=== PATIENT | female | born 1970 | race Caucasian/White ===

== ENCOUNTER → 2018-06-12 | Outpatient (CLI) | payer OTHER ==
[~2018-06-12] VITALS: Ht 172.7 cm; Wt 115.7 kg
[~2018-06-12] MED LIST: BIOTIN5000 MCG PO; IBUPROFEN 200200 M1 PO; NEURONTIN 300300 M1 PO; UNICOMPLEX M TA1 TA1 PO; VITAMIN D2000 UNIT PO
[2018-06-12 13:06] VITALS: BP 144/95
--- NOTE | 2018-06-12 13:10 | NUR ---
Pain Clinic Assessment: 1. History of Osteoarthritis: History of Rheumatoid Arthritis: 2. Height: 5 ft. 8 in. 172.7 cm. Weight: 255.0 lb. oz. 115.668 kg. Patient's BMI: 38.8 3. Vital Signs: BP: 144/95 Pulse: 75 Resp: 18 Temp: 02 Sat: 98 ECG Mon: 4. Pain Intensity: 3 5. Fall Risk: Dizziness: Y Needs help standing or walking: N Fallen in the last 3 months: N Fall risk comments: 6. Patient on Blood Thinner: 7. History of Hypertension: N 8. Opioid Therapy greater than 6 weeks: N Opiate Contract Signed: 9. Risk Assessment Tool Provided: 10. Functional Assessment Tool: 11. Recreational Drug Use: Never Drug Type: Tobacco Use: Never Smoker Tobacco Type: Amount or Packs/day: How Many Years: Alcohol Use: Yes Frequency: Weekly Quant: 2-3
--- NOTE | 2018-06-19 07:34 | HPC ---
[facility] [address] [place] [address] PAIN MANAGEMENT CONSULTATION Name: JENNIFER SHAIKH Room #: REG Zelalem Hyatt.#: [id number] Admission: 06/12/18 ������������������ Attend Phys: Tremayne Hernandez DO Discharge: ������������������ Date of : 66 Report #: [id number] THIS REPORT FOR: //name// CC: [facility] physician/PCP Tremayne Hernandez Physician staff Yadira Jordan NP DATE OF SERVICE: 06/12/2018 REFERRING PHYSICIAN: Yadira Jordan NP. CHIEF COMPLAINT: Low back pain, left lower extremity pain with paresthesias. HISTORY OF PRESENT ILLNESS: As you know, the patient is a very pleasant 48-year-old female who began experiencing increasing low back pain, left lower extremity pain that presented in 02/2018. The patient has had a previous injury to the left leg that has left her with some peripheral neuropathic symptoms, but this is a different distribution of symptoms and a different intensity of pain. The patient trialed conservative treatment with [id number]-[id number] medications in the form of ibuprofen, rest, relaxation, but did not see improvement. She subsequently was referred to see [facility], discussed treatment options for suspected lumbar radiculopathy. The patient was seen in consultation with Yadira Jordan, nurse practitioner, with [facility], who evaluated the patient to determine there is no surgical necessity and the patient was then subsequently referred to our clinic to discuss treatment options. She does have a new MRI dated 05/23/2018, which shows stable postoperative appearance of the T12 level. L1-L2, L2-L3, L3-L4 unremarkable. L4-L5 shows mild degenerative changes, small disk bulge identified at this level of listhesis, bilateral advanced facet arthropathy redemonstrated, but unchanged from previous evaluation, thecal sac measures 0.9 cm at L5-S1, mild degenerative changes of the disk, small diffuse posterior disk bulge identified, slightly more pronounced on the left, lateral recesses are partially effaced, more so on the left than the right, thecal sac measures 0.9 cm. Due to the findings of this MRI, the patient was subsequently referred to our clinic to discuss interventional treatments to address lumbar radiculopathy. The patient indicates today, pain is constant, describes the pain as burning, places current pain score 3/10, daily average of 3-7/10, worst pain has been 8/10. The patient states walking, standing exacerbates symptoms, nothing appears to improve pain. She has been referred to our service to discuss treatment options for lumbar radiculopathy. PAST MEDICAL HISTORY: History of scarlet fever. PAST SURGICAL HISTORY: [address] [address] PAIN MANAGEMENT CONSULTATION Name: NEELJENNIFER Room #: REG JACOB Vance#: [id number] Admission: 06/12/18 ������������������ Attend Phys: Tremayne Hernandez DO Discharge: ������������������ Date of : 66 Report #: [id number] 1. Left lower extremity external fixation. 2. Tib-fib repair. 3. T12 tumor resection. SOCIAL HISTORY: The patient denies tobacco, IV or illicit drug use. Admits to approximately 3 alcoholic beverages per week. She is employed as an senior staff accountant. She is working, not receiving workmen's compensation nor is she trying to obtain disability benefits. She is not in litigation in regards to pain. She is unaccompanied at today's visit. REVIEW OF SYSTEMS: Positive for wearing corrective eyewear, incontinence and dribbling to urine, numbness and tingling sensations involving the left lower extremity. Difficulty ambulating secondary to left lower extremity pain and residual deficits from prior fracture. All other review of systems negative per 12-point review of systems other than those listed in history of present illness. Pain impact score 44/70 indicating moderate interference of daily activities secondary to pain. ALLERGIES: INFLUENZA VIRUS, LATEX AND CERTAIN METALS. CURRENT MEDICATIONS: Ibuprofen 200 mg 4 tabs 3 times a day. IMAGING: MRI of the lumbar spine shows T12-L1 with a moderate broad-based central bilateral paracentral disk protrusion with thecal sac measuring 1.6 cm, L1-L2, L2-L3, L3-L4 unremarkable. L4-L5 shows mild degenerative changes, small diffuse disk bulge, bilateral advanced facet arthropathy, lateral recesses are partially effaced, both foramen are approximately mildly narrowed, thecal sac measures 0.9 cm AP. L5-S1, mild degenerative disk loss of height, small diffuse posterior disk bulge identified, more pronounced in the left. Foramen are mildly narrowed, lateral recess partially effaced. The thecal sac measuring 0.9 cm AP. 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 There are pressure erosive changes of the vertebral bodies. PHYSICAL EXAMINATION: VITAL SIGNS: Blood pressure 144/95, pulse 75, respiratory rate 18 and unlabored. The patient is 98% on room air. Height 5 feet 8 inches tall, weight 255 pounds, BMI calculated 38.8. GENERAL: Well-developed, well-nourished, well-hydrated exogenously obese 48-year-old female, appearing her stated age. She is placing current pain score at around 3-4/10. HEENT: Normocephalic, atraumatic. Pupils equal, round, reactive to light. Extraocular muscles are intact. Sclerae nonicteric without injection. NEUROLOGIC: Cranial nerves 2-12 grossly intact. Speech is fluent. The patient deemed a good historian. LUNGS: Clear, no wheeze, rhonchi or rales. CARDIOVASCULAR: Regular. No appreciable gallop, no rub. [facility] [address] [place] [address] PAIN MANAGEMENT CONSULTATION Name: JENNIFER SHAIKH Room #: REG [facility] [place].#: [id number] Admission: 06/12/18 ������������������ Attend Phys: Tremayne Hernandez DO Discharge: ������������������ Date of : 66 Report #: [id number] ABDOMEN: Soft, obese, normoactive bowel sounds. EXTREMITIES: Show no clubbing, no cyanosis, no edema. MUSCULOSKELETAL: Lower extremity strength appears symmetrical 5/5. She is intact to light touch from L1 through S2 dermatomes. There does appear to be a slight variation in light touch in the distal portion of what would be the S1 dermatomal distribution. Gait is mildly antalgic favoring left lower extremity over right. Babinski is normal bilaterally. Ankle clonus is negative bilaterally. Seated straight leg raising negative. Supine straight leg raising mildly positive on the left. Lumbar provocation testing is met with increasing pain. Well-healed surgical scar over the lower thoracic level. ASSESSMENT: 1. Symptomatic lumbar radiculopathy. 2. Displacement of lumbar intervertebral disk with radiculopathy. 3. 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 4. Lumbosacral spondylosis with radiculopathy. 5. Chronic intractable pain. PLAN: 1. Based on today's physical exam and history the patient has provided, the description the patient uses in regards to pain as well as location of symptoms, likely source of the patient's pain is lumbar radiculopathy. Findings of the MRI showed changes in the lateral recess at the L4-L5 and L5-S1 level that appears to be more effacement at the L5-S1 level which does correlate with the patient's left-sided symptoms based on the left-sided effacement greater in the lateral recess at that level. We have discussed with the patient the treatment options for lumbar radiculopathy today. The following was discussed with the patient for treatment options we have available. We discussed physical therapy, stretching exercises and core strengthening. This in conjunction with a concerted effort at weight loss would provide the patient improvement in symptoms and improvement in mobility as well as stability of the lower extremities. We discussed medication management with the addition of a neuropathic pain medication and the use of less consistent nonsteroidal anti-inflammatory. We discussed epidural injections for which the patient was referred to our clinic. We also discussed spinal cord stimulator therapy as an option for treatment as well as potential surgical options at this point though the patient is not a surgical candidate. After reviewing the risks and benefits of all proposed treatment options, the patient chose to make changes in medication therapy and to consider initiation of aqua therapy. 2. The patient will be started on gabapentin 300 mg dose. She will continue the 300 mg dose for 3 days, increase to 600 mg dose for 3 days, then 900 mg dose for 3 days. If no side effects of somnolence, decreased mental acuity, disorientation or confusion is noted at this level then she will increase morning doses starting at 300 mg in the morning for 3 days, continuing the 900 mg at night, then jumping to 600 mg in the morning and 900 mg at night, then [address] [address] PAIN MANAGEMENT CONSULTATION Name: JENNIFER SHAIKH Room #: REG JACOB Vance#: [id number] Admission: 06/12/18 ������������������ Attend Phys: Tremayne Hernandez, Discharge: ������������������ Date of : 66 Report #: [id number] ultimately 900 mg b.i.d. The patient was advised anytime during the titration of this medication, she notes improvement in symptoms, she is to stabilize at that dose without further escalation. No improvement in symptoms, no side effects, continue the titration as directed. She was given #180 tablets with a titration schedule in written form today. If she has questions or concerns about the medication, contact our clinic. 3. Recommend strongly the patient begin an aqua therapy program. I believe aqua therapy would be the best initial treatment for the patient from a physiologic standpoint. The patient will be able to gain exercise cardiovascularly as well as whole body exercise with aqua therapy. This will reduce the weightbearing the patient has been experiencing thus reducing the pain in the left lower extremity that has been present since her tib-fib fracture in the past. Certainly, this will also help with increasing her metabolic output, which will begin to reduce weight, which again will improve the patient's left lower extremity pain. We encouraged the patient to begin the aqua therapy as quickly as possible. She wishes to do a nonformalized program at this time, but would consider formalized physical therapy if she is unsuccessful at the informalized aqua therapy suggested today. 4. We will begin the authorization process for the patient to undergo a lumbar epidural injection under fluoroscopic guidance as requested by the neurosurgery team. We will begin the authorization process immediately. This could take anywhere from 4-7 working days. Once we have this authorization available, we will contact the patient to determine if she wishes to utilize this injection or continue more conservative treatment options. We will begin this authorization process and contact the patient once it has been completed. If she wishes to return, we will have the authorization available, so she can undergo the first in a series of requested epidural injections. 5. We wish to thank nurse practitioner, Yadira Jordan, for the opportunity to see this patient in consultation. We will keep you apprised of her response to treatment as we address lumbar radiculopathy. Again, we wish to thank you for the opportunity to see this patient in consultation. ��������������������������������������������� <ELECTRONICALLY SIGNED> ���������������������������������������� By: Tremayne Hernandez DO ��������������������������������������������� 06/19/18 [id number] Tremayne Hernandez DO /nt
== END ==
LOC: PAIN 06:57
DX: M51.16 Intervertebral disc disorders with radiculopathy, lumbar region (principal); M48.061 Spinal stenosis, lumbar region without neurogenic claudication; M47.27 Other spondylosis with radiculopathy, lumbosacral region; G89.29 Other chronic pain; Z91.040 Latex allergy status; Z88.7 Allergy status to serum and vaccine

== ENCOUNTER → 2018-07-03 | Outpatient (CLI) | payer OTHER ==
[~2018-07-03] VITALS: Ht 172.7 cm; Wt 116.8 kg
--- NOTE | ~2018-07-03 | HPC ---
[facility] [address] [place] [address] PAIN MANAGEMENT CONSULTATION Name: JENNIFER SHAIKH Room #: REG Zelalem Hyatt.#: [id number] Admission: 07/03/18 ������������������ Attend Phys: Tremayne Hernandez DO Discharge: ������������������ Date of : 66 Report #: [id number] THIS REPORT FOR: //name// CC: [facility] physician/PCP Tremayne Hernandez Physician staff Lanny Jordan NP DATE OF SERVICE: 07/03/2018 CHIEF COMPLAINT: Low back pain and left lower extremity pain and paresthesias. HISTORY OF PRESENT ILLNESS: As you know, the patient is a very pleasant 48-year-old female who began experiencing increasing low back pain and left lower extremity pain that presented in 02/2018. She has had previous injury to the left leg with peripheral neuropathic symptoms that were residual from that injury. She sought evaluation through Neurosurgery in regards to low back pain and left lower extremity symptoms. She was diagnosed with lumbar radiculopathy and subsequently referred to our clinic. We saw the patient in consultation on 06/12/2018 where we started the patient on medication in the form of Neurontin in hopes of improving symptoms. She returns today in followup visit stating that she is experiencing some improvement in symptoms, but is wishing to undergo a lumbar epidural injection under fluoroscopic guidance to address lumbar radicular symptoms. The patient currently is taking 900 mg of gabapentin 3 times a day and reporting no side effects. She returns for an epidural injection and discuss alteration in medication management. ALLERGIES: INFLUENZA VIRUS, LATEX, METALS. CURRENT MEDICATIONS: Ibuprofen 200 mg 4 times a day, gabapentin 900 mg b.i.d. SOCIAL HISTORY: The patient denies tobacco, IV or illicit drug use. Admits to 3 alcoholic beverages per week. She is employed as an forensic accountant. She is working, not receiving workmen's compensation, unaccompanied today. IMAGING: No new imaging available. PHYSICAL EXAMINATION: VITAL SIGNS: Blood pressure 114/110, pulse is 78, respiratory rate 20 and unlabored. The patient is 98% on room air. Height 5 feet 8 inches tall, weight 257.6 pounds, BMI calculated 39.2. GENERAL: Well-developed, well-nourished, well-hydrated 48-year-old female appearing stated age, placing current pain score 3/10. HEENT: Normocephalic, atraumatic. Pupils equal, round, reactive to light. EXTREMITIES: Show no clubbing, no cyanosis, no edema. MUSCULOSKELETAL: Lower extremity strength is symmetrical again today 08/26, [place] [address] PAIN MANAGEMENT CONSULTATION Name: JENNIFER SHAIKH Room #: REG [employer].#: [id number] Admission: 07/03/18 ������������������ Attend Phys: Tremayne Hernandez DO Discharge: ������������������ Date of : 66 Report #: [id number] intact to light touch from L1 through S2 dermatomes. Seated straight leg raising negative. Supine straight leg raising positive left. Tressa's test negative. Gait mildly antalgic favoring left lower extremity over right. ASSESSMENT: 1. Symptomatic lumbar radiculopathy. 2. Displacement of lumbar intervertebral disk with radiculopathy. 3. Lateral recess stenosis of lumbar spine. 4. Lumbosacral spondylosis with radiculopathy. 5. Chronic intractable pain. PLAN: 1. The patient returns today in followup visit to undergo first in a series of lumbar epidural injections under fluoroscopic guidance. We have advised the patient of the risks and the benefits of this procedure. These risks include but are not necessarily limited to bleeding, bruising, infection, worsening of pain, no relief of pain and also risk of temporary or permanent muscle weakness, temporary or permanent nerve damage, possible paralysis and . The patient states she understood and wished to proceed. 2. We did discuss the possibility of adjusting her gabapentin further. At present, we will keep her at the 900 mg b.i.d. dose that she is experiencing no side effects and had noted some improvement. We will determine the efficacy of today's epidural injection and then determine if adjustments in medication are necessary. The patient was amenable with this suggestion. She has gabapentin available, does not need refills at this visit. 3. I will see the patient back in followup visit in 30 days. At that time, review the efficacy of today's epidural injection and determine if any other alterations in medication therapy or possible repeating epidural injections might be necessary. PROCEDURE NOTE DESCRIPTION OF PROCEDURE: L5-S1 left paramedian epidural steroid injection under fluoroscopic guidance. This is the first procedure of the first series that the patient is undergoing. After obtaining written consent, the patient was taken back to the fluoroscopy suite, placed in a prone position with pillow under the abdomen to decrease lumbar lordosis. The skin overlying the lumbosacral area was then prepped and draped in aseptic fashion. The L5-S1 vertebral interspace was then identified by AP fluoroscopy. The skin and subcutaneous tissue overlying the target site of injection was anesthetized with 3 mL 1% lidocaine. A 20-gauge, 3.5-inch Tuohy needle was then advanced under fluoroscopic guidance towards the epidural space using a left parameian approach. The epidural space [address] [address] PAIN MANAGEMENT CONSULTATION Name: JENNIFER SHAIKH Room #: REG CLI [facility]#: [id number] Admission: 07/03/18 ������������������ Attend Phys: Tremayne Hernandez DO Discharge: ������������������ Date of : 66 Report #: [id number] was identified using loss of resistance to air technique. After negative aspiration for heme or cerebrospinal fluid, a total of 1 mL of Omnipaque was injected. A lumbar epidurogram was confirmed using both AP and lateral fluoroscopy. After negative aspiration for heme or cerebrospinal fluid, 5 mL of a solution containing 2 mL 40 mg/mL 80 mg total triamcinolone, 3 mL of lidocaine 1% was injected in increments. Contrast spread was noted in posterior epidural space. The needle was then retracted approximately half way and needle tract flushed with 1 mL of 1% lidocaine. Needle was then removed. There were no apparent sensory or motor deficits in the lower extremity following the procedure. A sterile bandage was placed over the injection site. The heart rate, pulse, oximetry and blood pressure were continuously monitored after the procedure. There were no apparent complications. The patient tolerated the procedure well and was carefully escorted to the recovery room in stable condition. There were no apparent complications. After meeting discharge criteria, the patient was then discharged home. ��������������������������������������������� ���������������������������������������� By: ��������������������������������������������� [id number] Tremayne Hernandez DO /nt
[2018-07-03 13:18] VITALS: BP 152/110
--- NOTE | 2018-07-03 13:50 | NUR ---
Pain Clinic Assessment: 1. History of Osteoarthritis: History of Rheumatoid Arthritis: 2. Height: 5 ft. 8 in. 172.7 cm. Weight: 257.6 lb. oz. 116.847 kg. Patient's BMI: 39.2 3. Vital Signs: BP: 152/110 Pulse: 78 Resp: 20 Temp: 02 Sat: 98 ECG Mon: 4. Pain Intensity: 3 5. Fall Risk: Dizziness: N Needs help standing or walking: N Fallen in the last 3 months: N Fall risk comments: 6. Patient on Blood Thinner: None 7. History of Hypertension: N 8. Opioid Therapy greater than 6 weeks: N Opiate Contract Signed: 9. Risk Assessment Tool Provided: 10. Functional Assessment Tool: 11. Recreational Drug Use: Never Drug Type: Tobacco Use: Never Smoker Tobacco Type: Amount or Packs/day: How Many Years: Alcohol Use: Yes Frequency: Quant:
== END | disposition home or self-care (01) ==
LOC: PAIN 06:56
DX: M51.16 Intervertebral disc disorders with radiculopathy, lumbar region (principal); M47.27 Other spondylosis with radiculopathy, lumbosacral region; G89.29 Other chronic pain; Z88.8 Allergy status to other drugs, medicaments and biological substances; Z91.040 Latex allergy status; Z79.899 Other long term (current) drug therapy

== ENCOUNTER → 2018-07-17 | Outpatient (CLI) | payer OTHER ==
[~2018-07-17] VITALS: Ht 172.7 cm; Wt 114.9 kg
--- NOTE | ~2018-07-17 | HPC ---
[facility] [address] [place] [address] PAIN MANAGEMENT CONSULTATION Name: JENNIFER SHAIKH Room #: REG Zelalem M.R.#: [id number] Admission: 07/17/18 ������������������ Attend Phys: Tremayne Hernandez DO Discharge: ������������������ Date of : 66 Report #: [id number] THIS REPORT FOR: //name// CC: [facility] physician/PCP Tremayne Hernandez Physician staff Lanny Jordan NP DATE OF SERVICE: 07/17/2018 CHIEF COMPLAINT: Low back pain, left lower extremity pain with paresthesias. HISTORY OF PRESENT ILLNESS: As you know, the patient is a 48-year-old female who returns today in followup visit with continued low back pain, left lower extremity pain and paresthesias, presented in 02/2018. We have started the patient on escalation of gabapentin for which she is now taking gabapentin at ever increasing doses. She is currently taking gabapentin 900 mg b.i.d. with plans to continue escalation to address ongoing pain. She states the medications along with the epidural injection provided 80% improvement in overall pain. She continues to experience pain for which she rates symptoms at 2/10 in the leg. She does feel the gabapentin has been beneficial. She is experiencing no side effects to the therapy. She returns today for adjustments in medication management. ALLERGIES: No known drug allergies. CURRENT MEDICATIONS: Gabapentin 900 mg b.i.d., multivitamin 1 tab per day, biotin 500 mcg per day, cholecalciferol 2000 units per day, ibuprofen 200 mg 3 tabs p.o. every day p.r.n. SOCIAL HISTORY: The patient denies tobacco, alcohol, IV or illicit drug use. She is working as an mutual fund accountant. She is unaccompanied today. IMAGING: No new imaging available. PHYSICAL EXAMINATION: VITAL SIGNS: Blood pressure 143/92, pulse 80, respiratory rate 20 and unlabored. The patient is 98% on room air. Height 5 feet 8 inches tall, weight 253.4 pounds, BMI calculated at 38.5. GENERAL: Well-developed, well-nourished, well-hydrated exogenously obese 48-year-old female, appearing stated age, placing current pain score around 1-2/10 involving the left lower extremity. HEENT: Normocephalic, atraumatic. Pupils are equal, round, reactive to light. Extraocular muscles are intact. NEUROLOGIC: Speech fluent. The patient deemed an excellent historian. EXTREMITIES: Show no clubbing, no cyanosis, and no edema. [facility] [address] [place] [address] PAIN MANAGEMENT CONSULTATION Name: JENNIFER SHAIKH Room #: REG JACOB McgregorJermaine.#: [id number] Admission: 07/17/18 ������������������ Attend Phys: Tremayne Hernandez DO Discharge: ������������������ Date of : 66 Report #: [id number] MUSCULOSKELETAL: Lower extremity strength is symmetrical again today 5/5. No giveaway strength noted. Seated straight leg raising negative. Supine straight leg raising positive on the left. Tressa's test negative. She has a mild antalgic left lower extremity gait. There is no focal muscle weakness or neuropathy. ASSESSMENT: 1. Symptomatic lumbar radiculopathy. 2. Displacement of lumbar intervertebral disk with radiculopathy. 3. Lateral recess stenosis of lumbar spine. 4. Lumbosacral spondylosis with radiculopathy. 5. Lumbar degeneration. 6. Chronic intractable pain. PLAN: 1. The patient returns today in followup visit stating a pain level of 2/10. Her symptoms appear to be neuropathic in origin. She reports 80% improvement in overall symptoms with the epidural injection and the initiation of gabapentin therapy. She is currently 900 mg b.i.d. with no side effects. To address the residual numbness and tingling she is experiencing in the right leg, I would recommend increasing her gabapentin further. I will delay the next in a series of epidural injections until which time her pain intensifies or returns to an intolerable level. 2. We will increase gabapentin by 300 mg at night for 3 nights for a total of 900 mg morning and 1200 mg at night. If no side effects and no improvement in symptoms, she will then increase her dose to 1200 mg in morning and 1200 mg at night. This will be followed by increasing daytime doses 300 mg every 3 days until which time the patient reach good benefit or side effects she cannot tolerate. The patient was advised during the titration if she notes improvement in symptoms to stabilize at that dose, no further escalation. No improvement in symptoms, no side effects, continue de-escalation of medication. We are using 300 mg tablets to continue the titration as directed. It would be difficult to make adjustments in her medication therapy until which time she reaches an efficacious level. At that time, we will turn this into as few tablets as possible. Coverage for this titration is appropriate and should be easily obtained. 3. The patient was provided prescription of gabapentin 300 mg dose, I have given her #360 tablets, the requirement to be able to titrate as directed to reach an efficacious level. This is a generic medication. It is easily accessible and should be well covered by her insurance, especially with the titration necessary to reach efficacious levels. We have written a prescription for the patient today with refills if effective 2 different refills. 4. We will see the patient back in followup visit on an as needed basis for possible next in the series of epidural injections. She will contact our clinic [address] [place] [address] PAIN MANAGEMENT CONSULTATION Name: JENNIFER SHAIKH Room #: REG JACOB Vance#: [id number] Admission: 07/17/18 ������������������ Attend Phys: Tremayne Hernandez DO Discharge: ������������������ Date of : 66 Report #: [id number] once she reaches an efficacious level of gabapentin, so that we can turn that in to as few tablets as possible. ��������������������������������������������� ���������������������������������������� By: ��������������������������������������������� 0930 0130 Tremayne Hernandez DO /nt
[2018-07-17 08:29] VITALS: BP 143/92
--- NOTE | 2018-07-17 08:41 | NUR ---
Pain Clinic Assessment: 1. History of Osteoarthritis: History of Rheumatoid Arthritis: 2. Height: 5 ft. 8 in. 172.7 cm. Weight: 253.4 lb. oz. 114.942 kg. Patient's BMI: 38.5 3. Vital Signs: BP: 143/92 Pulse: 80 Resp: 20 Temp: 02 Sat: 98 ECG Mon: 4. Pain Intensity: 0 back 1-2 leg 5. Fall Risk: Dizziness: N Needs help standing or walking: N Fallen in the last 3 months: N Fall risk comments: 6. Patient on Blood Thinner: None 7. History of Hypertension: N 8. Opioid Therapy greater than 6 weeks: N Opiate Contract Signed: 9. Risk Assessment Tool Provided: 10. Functional Assessment Tool: 11. Recreational Drug Use: Never Drug Type: Tobacco Use: Never Smoker Tobacco Type: Amount or Packs/day: How Many Years: Alcohol Use: Yes Frequency: Weekly Quant: 2 X WEEK
== END ==
LOC: PAIN 06:52
DX: M47.27 Other spondylosis with radiculopathy, lumbosacral region (principal); M51.16 Intervertebral disc disorders with radiculopathy, lumbar region; M48.061 Spinal stenosis, lumbar region without neurogenic claudication; G89.4 Chronic pain syndrome; Z79.899 Other long term (current) drug therapy

== ENCOUNTER → 2018-10-10 | Outpatient (CLI) | payer OTHER ==
[~2018-10-10] VITALS: Ht 172.7 cm; Wt 112.5 kg
[~2018-10-10] MED LIST changes: +FLAX SEED OIL1000 MG PO; +NEURONTIN600 MG PO
[2018-10-10 11:19] VITALS: BP 145/92
--- NOTE | 2018-10-10 11:22 | NUR ---
Pain Clinic Assessment: 1. History of Osteoarthritis: Not Applicable History of Rheumatoid Arthritis: Not Applicable 2. Height: 5 ft. 8 in. 172.7 cm. Weight: 248.0 lb. oz. 112.492 kg. Patient's BMI: 37.7 3. Vital Signs: BP: 145/92 Pulse: 74 Resp: 16 Temp: 02 Sat: 97 ECG Mon: 4. Pain Intensity: 2 5. Fall Risk: Dizziness: N Needs help standing or walking: N Fallen in the last 3 months: N Fall risk comments: 6. Patient on Blood Thinner: None 7. History of Hypertension: N 8. Opioid Therapy greater than 6 weeks: N Opiate Contract Signed: 9. Risk Assessment Tool Provided: low-0 10. Functional Assessment Tool: / 11. Recreational Drug Use: Never Drug Type: Tobacco Use: Never Smoker Tobacco Type: Amount or Packs/day: How Many Years: Alcohol Use: Yes Frequency: Special Occasions Quant:
--- NOTE | 2018-10-23 13:03 | HPC ---
[facility] [place] [address] [place] [address] PAIN MANAGEMENT CONSULTATION Name: JENNIFER SHAIKH Room #: REG Zelalem M.R.#: [id number] Admission: 10/10/18 ������������������ Attend Phys: Tremayne Hernandez DO Discharge: ������������������ Date of : 66 Report #: [id number] THIS REPORT FOR: //name// CC: [facility] physician/PCP Tremayne Hernandez Physician staff Zaira Jordan NP DATE OF SERVICE: 10/10/2018 CHIEF COMPLAINT: Low back pain, left lower extremity pain and paresthesias. HISTORY OF PRESENT ILLNESS: As you know, the patient is a 48-year-old female referred to our service by her Neurosurgery team for evaluation and treatment. We have started the patient on gabapentin that we have titrated to good efficacy. She returns today stating pain no greater than 2/10. She is extremely pleased with response to the gabapentin therapy, returning in followup visit for refill of the treatment. She is taking 1200 mg 3 times a day without any side effects and good improvement in pain. She returns to gain refill of medications for the next 3 months. She denies side effects of somnolence, decreased mental acuity, disorientation, confusion, mental slowing with the use of this medication. ALLERGIES: No known drug allergies. CURRENT MEDICATIONS: Gabapentin 1200 mg 3 times a daily, multivitamin 1 tab per day, biotin 500 mcg per day, cholecalciferol 2000 units per day, ibuprofen 200 mg 3 times a day p.r.n. SOCIAL HISTORY: The patient denies tobacco, alcohol, IV or illicit drug use. She is working as an staff accountant, unaccompanied today. IMAGING: No new imaging available. PHYSICAL EXAMINATION: VITAL SIGNS: Blood pressure 145/92, pulse is 74, respiratory rate 16 and unlabored. The patient is 97% on room air. Height 5 feet 8 inches tall, weight 248 pounds, BMI calculated at 37.7. GENERAL: Well-developed, well-nourished, well-hydrated, morbidly obese female, appearing stated age, placing current pain score 2/10. HEENT: Normocephalic, atraumatic. Pupils equal, round, reactive to light. Extraocular muscles are intact. Speech fluent. The patient deemed a good historian. EXTREMITIES: Show no clubbing, no cyanosis, and no edema. MUSCULOSKELETAL: Lower extremity strength remains symmetrical 5/5. Muscle bulk and tone is symmetrical in lower extremities. Ankle clonus negative. [address] [address] PAIN MANAGEMENT CONSULTATION Name: JENNIFER SHAIKH Room #: REG CLI [facility].#: [id number] Admission: 10/10/18 ������������������ Attend Phys: Tremayne Hernandez DO Discharge: ������������������ Date of : 66 Report #: [id number] is negative. Seated straight leg raising negative. Supine straight leg raising positive. ASSESSMENT: 1. Symptomatic lumbar radiculopathy. 2. Displacement of lumbar intervertebral disk with radiculopathy. 3. Lateral recess stenosis of lumbar spine. 4. Lumbosacral spondylosis with radiculopathy. 5. Lumbar degeneration. 6. Chronic intractable pain. PLAN: 1. The patient returns today in followup visit requesting refill on her gabapentin therapy. She is now at 1200 mg 3 times a day, reporting good efficacy and little or no side effects such as somnolence, decreased mental acuity, disorientation, confusion, mental slowing. She feels medications are working beneficially. She returns requesting refill of medications for the next 3 months. The patient was provided prescription of gabapentin 600 mg tabs 2 tabs p.o. t.i.d., 180 tablets, 2 refills. This is 3 months' worth of medication. 2. We will see the patient back in followup visit in 3 months for medication therapy. I did advise the patient if she wishes to return to her PCP to continue this medication, this could be done as this is not a scheduled medication and should not be a complication from the primary care to refill. Otherwise, we will see her back in followup visit in 3 months or earlier if adjustments need to be made in medication treatment. ��������������������������������������������� <ELECTRONICALLY SIGNED> ���������������������������������������� By: Tremayne Hernandez DO ��������������������������������������������� 10/23/18 1303 0821 1201 Tremayne Hernandez DO /nt
== END ==
LOC: PAIN 06:52
DX: M51.16 Intervertebral disc disorders with radiculopathy, lumbar region (principal); M47.27 Other spondylosis with radiculopathy, lumbosacral region; M79.662 Pain in left lower leg; M79.661 Pain in right lower leg; Z79.899 Other long term (current) drug therapy

== ENCOUNTER → 2019-01-01 | Outpatient (CLI) | payer OTHER ==
[~2019-01-01] VITALS: Ht 172.7 cm; Wt 111.7 kg
[~2019-01-01] MED LIST changes: +AMITRIPTYLINE H25 M2 PO
[2019-01-01 14:18] VITALS: BP 113/75
--- NOTE | 2019-01-01 14:40 | NUR ---
Pain Clinic Assessment: 1. History of Osteoarthritis: Not Applicable History of Rheumatoid Arthritis: Not Applicable 2. Height: 5 ft. 8 in. 172.7 cm. Weight: 246.2 lb. oz. 111.676 kg. Patient's BMI: 37.4 3. Vital Signs: BP: 113/75 Pulse: 76 Resp: 16 Temp: 02 Sat: 98 ECG Mon: 4. Pain Intensity: 2-3 NOW 4-5 W/ACTIVITY 5. Fall Risk: Dizziness: N Needs help standing or walking: N Fallen in the last 3 months: Y Fall risk comments: 6. Patient on Blood Thinner: None 7. History of Hypertension: N 8. Opioid Therapy greater than 6 weeks: N Opiate Contract Signed: 9. Risk Assessment Tool Provided: low-0 10. Functional Assessment Tool: 11. Recreational Drug Use: Never Drug Type: Tobacco Use: Never Smoker Tobacco Type: Amount or Packs/day: How Many Years: Alcohol Use: Yes Frequency: Quant:
--- NOTE | 2019-01-29 07:46 | HPC ---
[facility] [address] [place] [address] PAIN MANAGEMENT CONSULTATION Name: JENNIFER SHAIKH Room #: REG [facility] M..#: [id number] Admission: 01/01/19 Attend Phys: Tremayne Hernandez DO Discharge: Date of : 66 Report #: [id number] THIS REPORT FOR: //name// CC: [facility] physician/PCP Tremayne CHARLTON DATE OF SERVICE: 01/22/2019 REFERRING PHYSICIAN: ZOLTAN Verdugo CHIEF COMPLAINT: Low back pain, left lower extremity pain with paresthesias. HISTORY OF PRESENT ILLNESS: As you know, the patient is a 48-year-old female referred to our service for low back pain, left lower extremity pain with paresthesias. The patient states pain began in 02/2018. No inciting injury or trauma. We have trialed the patient on medication management and escalated dose of gabapentin to 1200 mg 3 times a day and then utilized adjunctive treatment options for further improvement in pain. Unfortunately, her symptoms have continued to be present anywhere from the level of 2-5/10 depending on activity. She returns today in followup visit for further adjustments in medication management, if at all possible. She is denying side effects to the gabapentin, including somnolence, decreased mental acuity, disorientation, confusion and mental slowing. ALLERGIES: No known drug allergies. CURRENT MEDICATIONS: Gabapentin 1200 mg 3 times a day, multivitamin 1 tab per day, Biotin 500 mcg per day, cholecalciferol 2000 units per day, ibuprofen 200 mg 3 times a day. SOCIAL HISTORY: The patient denies tobacco, alcohol, IV or illicit drug use. She is working as an property management accountant. She is working, not receiving workmen's compensation. IMAGING: No new imaging available. PHYSICAL EXAMINATION: VITAL SIGNS: Blood pressure 113/75, pulse 76, respiratory rate 16 and unlabored. The patient is 98% on room air. Height 5 feet 8 inches tall, weight 246.2 pounds, BMI calculated 37.4. GENERAL: Well-developed, well-nourished, well-hydrated exogenously obese 48-year-old female, appearing stated age, pain is rated around 2-3/10 up to 4-5/10 depending on activity. HEENT: Normocephalic, atraumatic. Pupils equal, round, reactive to light. Extraocular muscles are intact. Speech fluent. [facility] [address] [place] [address] PAIN MANAGEMENT CONSULTATION Name: JENNIFER SHAKIH Room #: REG CLZelalem Edmar.#: [id number] Admission: 01/01/19 Attend Phys: Tremayne Hernandez DO Discharge: Date of : 66 Report #: [id number] EXTREMITIES: Show no clubbing, no cyanosis, no edema. MUSCULOSKELETAL: Lower extremity strength remains symmetrical again today, 5/5. Muscle bulk and tone equal and symmetrical in comparing left lower extremity to right. Seated straight leg raising negative. Supine straight leg raising positive on the left. LICHA'S test negative. Modified Gaenslen's positive for axial low back pain. Gait mildly antalgic. ASSESSMENT: 1. Symptomatic lumbar radiculopathy. 2. Displacement of lumbar intervertebral disk with radiculopathy. 3. Lateral recess stenosis of lumbar spine. 4. Lumbosacral spondylosis with radiculopathy. 5. Lumbar degeneration. 6. Chronic intractable pain. PLAN: 1. The patient returns today in followup visit to make further adjustments in medication management to address residual back pain and lower extremities pain and paresthesias. We had discussed in the past the possibility of adding a second neuropathic pain medication in hopes of improving pain. 2. The patient returns to make that adjustment today. 3. The patient was provided prescription of gabapentin, 600-mg, dose 2 tabs p.o. t.i.d. I have given the patient #180 tablets, releasing today, 4 weeks from today and 8 weeks from today, 3 months' worth of medication. 4. The patient was provided a new prescription of amitriptyline 25 mg dose. She will begin 1 tab p.o. at bedtime for 7 nights, then increase to 2 tabs p.o. at bedtime for 7 nights, if no improvement in symptoms, and ultimately reaching 3 tabs p.o. at bedtime. The patient was given #90 tablets, 2 refills. The patient was advised to watch for side effects with the medication. If she notes any side effects, decrease to the dose prior to the side effects, continue that dosing until our next visit. 5. We will see the patient back in followup visit in approximately 3 months. <ELECTRONICALLY SIGNED> By: Tremayne Hernandez DO 01/29/19 0746 1226 0324 Tremayne Hernandez DO /nt
== END ==
LOC: PAIN 07:06
DX: M51.16 Intervertebral disc disorders with radiculopathy, lumbar region (principal); M48.062 Spinal stenosis, lumbar region with neurogenic claudication; M47.26 Other spondylosis with radiculopathy, lumbar region; G89.4 Chronic pain syndrome; Z79.899 Other long term (current) drug therapy

== ENCOUNTER → 2019-05-28 | Outpatient (CLI) | payer OTHER ==
[~2019-05-28] VITALS: Ht 172.7 cm; Wt 111.9 kg
[~2019-05-28] MED LIST changes: +AMITRIPTYLINE H75 M2 PO; +GABAPENTIN600 M1 PO
[2019-05-28 09:50] VITALS: BP 138/96
--- NOTE | 2019-05-28 09:56 | NUR ---
Pain Clinic Assessment: 1. History of Osteoarthritis: Not Applicable History of Rheumatoid Arthritis: Not Applicable 2. Height: 5 ft. 8 in. 172.7 cm. Weight: 246.6 lb. oz. 111.857 kg. Patient's BMI: 37.5 3. Vital Signs: BP: 138/96 Pulse: 94 Resp: 16 Temp: 02 Sat: 100 ECG Mon: 4. Pain Intensity: 3 5. Fall Risk: Dizziness: N Needs help standing or walking: N Fallen in the last 3 months: N Fall risk comments: 6. Patient on Blood Thinner: None 7. History of Hypertension: N 8. Opioid Therapy greater than 6 weeks: N Opiate Contract Signed: 9. Risk Assessment Tool Provided: low-0 10. Functional Assessment Tool: 44/ 11. Recreational Drug Use: Never Drug Type: Tobacco Use: Never Smoker Tobacco Type: Amount or Packs/day: How Many Years: Alcohol Use: Yes Frequency: Special Occasions Quant: 1
--- NOTE | 2019-05-29 15:57 | HPC ---
[facility] [address] [place] [address] PAIN MANAGEMENT CONSULTATION Name: JENNIFER SHAIKH Room #: REG [facility] M.R.#: [id number] Admission: 05/28/19 Attend Phys: Mesha [place] Discharge: Date of : 66 Report #: [id number] THIS REPORT FOR: cc: [facility] - Camille family physician/PCP M[facility]TA - [place] family physician/PCP Mesha [place] ~ THIS REPORT FOR: //name// CC: Mesha [place] [facility] physician/PCP Tremayne Naik NP DATE OF SERVICE: 05/28/2019 CHIEF COMPLAINT: Low back pain, left lower extremity pain and paresthesias. HISTORY OF PRESENT ILLNESS: This is a very pleasant 49-year-old female who returns to the pain clinic for her ongoing low back pain and left lower extremity pain with paresthesias. She reports that her pain level is at 3/10 today with her gabapentin and amitriptyline. She believes that this medicine is beneficial and would like to continue this. 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 She reports no side effects of daytime sleepiness or confusion as a result of her medications. Her pain is located in her lower back that radiates into her right hip. She does occasionally have lower leg pain as well with burning, numbness, worse with prolonged walking and standing, but with sitting and the medicines, they are very beneficial. ALLERGIES: No known drug allergies. CURRENT LIST OF MEDICATIONS: Gabapentin 1200 mg t.i.d., amitriptyline 75 mg at bedtime, flaxseed oil, multivitamin, biotin, vitamin D and ibuprofen p.r.n. PQRS: 1. She denies any osteoarthritis or rheumatoid problems. 2. Height is 5 feet 8 inches, weight is 246, BMI is 37. 3. Vital signs; 138/96, pulse is 94, respirations 16, oxygen sat is 100%. 4. Pain score is 3/10. 5. Denies dizziness, does not need help walking or standing, has not fallen in the last 3 months. 6. The patient is not on any blood thinners or medicine for hypertension or opioids. Her risk assessment tool is low. Functional assessment is 44/70. 7. Recreational drug use, she denies. She is not a smoker and occasionally drinks alcohol. [address] [address] PAIN MANAGEMENT CONSULTATION Name: JENNIFER SHAIKH Room #: REG JACOB Vance#: [id number] Admission: 05/28/19 Attend Phys: Mesha [place] Discharge: Date of : 66 Report #: [id number] PHYSICAL EXAMINATION: GENERAL: This is a well-developed, well-nourished, exogenous obese 49-year-old female who appears her stated age, placing her current pain score at 3/10 today. HEENT: Normocephalic, atraumatic. Pupils equal, round and reactive. Her speech is fluent. EXTREMITIES: Without edema, clubbing or cyanosis. MUSCULOSKELETAL: Seated straight raising is negative. Supine straight leg raising is positive on the right. Modified Gaenslen's positive for axial low back pain. Her lower extremity strength judged to be 5/5 in all major muscle groups. ASSESSMENT: 1. Symptomatic lumbar radiculopathy. 2. Displacement of lumbar intervertebral disk with radiculopathy. 3. Lumbosacral spondylosis with radiculopathy. 4. Lumbar degeneration. 5. Chronic intractable pain. PLAN: 1. We discussed treatment options with the patient today. We will continue the patient on her gabapentin 1200 mg 3 times a day, prescription for 180 with 5 additional refills and amitriptyline 75 mg at bedtime, #30 with 5 additional refills. 2. We did discuss if she is able to decrease one or two of her gabapentin throughout the day, she may try that in the next 6 months. If her neuropathic pain increases, to return to her previous dose. The patient verbalized understanding. She will attempt this to see if she is able to take less medication. 3. The patient is seen in collaboration with Dr. Tremayne Hernandez. The patient is discharged to home. <ELECTRONICALLY SIGNED> By: Mesha [place] 05/29/19 1557 1058 2128 Mesha [place] /nt
== END ==
LOC: PAIN 06:35
DX: M51.16 Intervertebral disc disorders with radiculopathy, lumbar region (principal); M47.26 Other spondylosis with radiculopathy, lumbar region; M47.818 Spondylosis without myelopathy or radiculopathy, sacral and sacrococcygeal region; Z79.899 Other long term (current) drug therapy

== ENCOUNTER → 2019-11-26 | Outpatient (CLI) | payer OTHER ==
[~2019-11-26] VITALS: Ht 172.7 cm; Wt 109.4 kg
[~2019-11-26] MED LIST changes: +AMITRIPTYLINE H25 M4 PO; +B COMPLEX1 EACH PO; +PROBIOTIC1 EAC7 PO
--- NOTE | ~2019-11-26 | HPC ---
[facility] [place] [address] PAIN MANAGEMENT CONSULTATION Name: JENNIFER SHAIKH Room #: REG JACOB MPerez.#: [id number] Admission: 11/26/19 Attend Phys: Tremayne Hernandez DO Discharge: Date of : 66 Report #: [id number] THIS REPORT FOR: cc: MAMTA - Camille family physician/PCP FAM - No family physician/PCP Tremayne Hernandez DO ~ CC: [facility] physician/PCP Tremayne Jordan NP DATE OF SERVICE: 11/26/2019 REFERRING PHYSICIAN: Lanny Jordan NP CHIEF COMPLAINT: Low back pain, left lower extremity pain and paresthesias. HISTORY OF PRESENT ILLNESS: As you know, the patient is a very pleasant 49-year-old female returning in followup visit to address lumbar radicular symptoms for which she is utilizing medication with good efficacy. She indicates pain begins in low back, radiates down the right leg. She describes the pain as chronic in nature. She states symptoms are burning, numbness, fatigue, stiffness and heavy in sensation. She describes the pain as exacerbated with walking and standing, improves with sitting, rest, relaxation and distraction and medication management. She returns today in followup visit to adjust medications. She is not confident that the amitriptyline is helping with pain control. She has noted since she started the medication approximately 15 beat per increase in her heart rate. She contributes this change to the medications. She wishes to adjust the therapy today. ALLERGIES: No known drug allergies. CURRENT MEDICATIONS: Gabapentin 1200 mg t.i.d., amitriptyline 75 mg p.o. at bedtime, flaxseed oil 1 tablet per day, multivitamin 1 tablet per day, biotin 1 tablet per day, vitamin D 1 tablet per day, ibuprofen 200 mg 4 times a day p.r.n. SOCIAL HISTORY: The patient denies tobacco, alcohol, IV or illicit drug use. She is working as an accountant supervisor. She is not accompanied at today's visit. IMAGING: No new imaging available. PHYSICAL EXAMINATION: VITAL SIGNS: Blood pressure 135/91, pulse 89, respiratory rate 16 and unlabored. The patient is 97% on room air. Height 5 feet 8 inches tall, weight 241.2 pounds, BMI calculated 36.7. GENERAL: Well-developed, well-nourished, well-hydrated 49-year-old female, [address] [place] [address] PAIN MANAGEMENT CONSULTATION Name: JENNIFER SHAIKH Room #: REG JACOB M.R.#: [id number] Admission: 11/26/19 Attend Phys: Tremayne Hernandez DO Discharge: Date of : 66 Report #: [id number] appearing stated age, pain is rated today about 5/10. HEENT: Normocephalic and atraumatic. Pupils are equal, round and reactive. Speech is fluent. EXTREMITIES: Show no clubbing, no cyanosis. No apparent edema. MUSCULOSKELETAL: Lower extremity strength is symmetrical 5/5, intact to light touch from L1 through S2 dermatomes. Seated straight leg raising negative. Supine straight leg raising positive on the right. Tressa's test is negative. Modified Gaenslen's positive for axial low back pain. Gait appears normal. ASSESSMENT: 1. Symptomatic lumbar radiculopathy. 2. Displacement of lumbar intervertebral disk with radiculopathy. 3. Lumbosacral spondylosis with radiculopathy. 4. Lumbar degeneration. 5. Chronic intractable pain. PLAN: 1. The patient returns today in followup visit for medication management. She feels medications are working beneficially for pain control. She wishes to continue the gabapentin therapy, but would like to begin weaning off of the amitriptyline as she is concerned that her increased heart rate of 15 beats per may be due to the medications. She states she does notice it is specifically while she is increasing her exercise routines. The patient and I discussed this today, the following changes will be made. 2. The patient will reduce her amitriptyline to 50 mg p.o. at bedtime for the next 7 days. If she notes no significant change in overall pain and no improvement in the heart rate concerns she has, then reduced to 25 mg p.o. at bedtime. Continue for another 7 days. If no improvement in heart rate and no increase in pain, then come off the medication entirely. We advised the patient to watch for any changes in her pain level while weaning off this medication as well as any changes in her heart rate. I did provide the patient a prescription of amitriptyline at 25 mg dose, so she can wean off the therapy as above. 3. The patient will continue on gabapentin. She is doing well at the 1200 mg dose 3 times a day. She is denying side effects of sleepiness, disorientation, confusion, mental slowing with their use. We will continue this therapy. I have given the patient gabapentin 600 mg dose 2 tablets p.o. t.i.d., #180 tablets and I have provided 5 refills, essentially 6 months' worth of medication. 4. We will see the patient back in followup visit for medication management and discuss other treatment options if necessary. We are pleased to see she is doing well. We will hopeful that her concerns of her heart rate improved with the changes in medication therapy, she will keep us apprised of her response. By: [id number] Tremayne Hernandez DO /nt
[2019-11-26 10:00] VITALS: BP 135/91
--- NOTE | 2019-11-26 10:22 | NUR ---
Pain Clinic Assessment: 1. History of Osteoarthritis: Not Applicable History of Rheumatoid Arthritis: Not Applicable 2. Height: 5 ft. 8 in. 172.7 cm. Weight: 241.2 lb. oz. 109.408 kg. Patient's BMI: 36.7 3. Vital Signs: BP: 135/91 Pulse: 89 Resp: 16 Temp: 02 Sat: 97 ECG Mon: 4. Pain Intensity: 5 AVG 5. Fall Risk: Dizziness: N Needs help standing or walking: N Fallen in the last 3 months: N Fall risk comments: 6. Patient on Blood Thinner: None 7. History of Hypertension: N 8. Opioid Therapy greater than 6 weeks: N Opiate Contract Signed: 9. Risk Assessment Tool Provided: low-0 10. Functional Assessment Tool: 11. Recreational Drug Use: Never Drug Type: Tobacco Use: Never Smoker Tobacco Type: Amount or Packs/day: How Many Years: Alcohol Use: Yes Frequency: Quant:
== END ==
LOC: PAIN 06:48
PROVIDERS: ATTEND Anesthesiology Pain Medicine
DX: M51.16 Intervertebral disc disorders with radiculopathy, lumbar region (principal); M79.605 Pain in left leg; R20.2 Paresthesia of skin; M47.27 Other spondylosis with radiculopathy, lumbosacral region; G89.29 Other chronic pain; Z79.899 Other long term (current) drug therapy

== ENCOUNTER → 2020-04-21 | Outpatient (CLI) | payer OTHER ==
[~2020-04-21] VITALS: Ht 172.7 cm; Wt 111.9 kg
[~2020-04-21] MED LIST changes: +CYMBALTA30 MG PO
--- NOTE | ~2020-04-21 | HPC ---
[facility] [address] [place] [address] PAIN MANAGEMENT CONSULTATION Name: JENNIFER SHAIKH Room #: REG NELLIEZelalem Hyatt.#: [id number] Admission: 04/21/20 Attend Phys: Tremayne Hernandez DO Discharge: Date of : 66 Report #: [id number] THIS REPORT FOR: cc: MAMTA - No family physician/PCP FAM - No family physician/PCP Tremayne Hernandez DO ~ DATE OF SERVICE: 04/21/2020 REFERRING PHYSICIAN: Lanny Jordan NP CHIEF COMPLAINT: Low back pain, left lower extremity pain and paresthesias. HISTORY OF PRESENT ILLNESS: As you know, the patient is a very pleasant 50-year-old female returning in followup visit to discuss adjustments in medication management to address recurrent pain. The patient was initially started on gabapentin, escalated to 1200 mg 3 times a day with excellent benefit. Unfortunately, her symptoms began to progress, and she was started on nortriptyline in hopes of improving symptoms. The patient noted changes in her heart rate and noted also some excessive sweating with the medication. She was advised to discontinue the therapy and the symptoms did resolve. She returns today to discuss potential further treatment options to address pain that she now believes at 5/10. Pain is radiating from the low back to the left lower extremity. She is very pleased with response to the gabapentin and hopeful to make changes in medication management to once again gain analgesic benefit. Today, the patient is suffering from no side effects to the gabapentin. ALLERGIES: No known drug allergies. CURRENT MEDICATIONS: Gabapentin 1200 mg t.i.d., flaxseed oil 1 tab p.o. at bedtime, multivitamin 1 tab per day, biotin 1 tab per day, vitamin D 1 tablet per day, ibuprofen 200 mg 4 times a day p.r.n. SOCIAL HISTORY: The patient denies tobacco, alcohol, IV or illicit drug use. She is working as an reconciliation accountant. She is not receiving workmen's compensation, unaccompanied today. IMAGING: No new imaging available. PHYSICAL EXAMINATION: VITAL SIGNS: Blood pressure 154/89, pulse 86, respiratory rate 16 and unlabored. The patient is 98% on room air. Height 5 feet 8 inches tall, weight 246.8 pounds, BMI calculated 37.5. GENERAL: Well-developed, well-nourished, well-hydrated 50-year-old female appearing stated age, pain is rated today around 5/10. HEENT: Normocephalic, atraumatic. Pupils equal, round. The patient is wearing a mask in compliance with COVID-[place] [address] PAIN MANAGEMENT CONSULTATION Name: JENNIFER SHAIKH Room #: REG [facility].#: [id number] Admission: 04/21/20 Attend Phys: Tremayne Hernandez DO Discharge: Date of : 66 Report #: [id number] EXTREMITIES: Show no clubbing, no cyanosis, no edema. MUSCULOSKELETAL: Lower extremity strength today is again equal and symmetrical 5/5. Muscle bulk and tone equal and symmetrical in comparing lower extremities. Intact to light touch from L1 through S2 dermatomes. Seated straight leg raising negative. Supine straight leg raising positive on the left. ASSESSMENT: 1. Symptomatic lumbar radiculopathy. 2. Displacement of lumbar intervertebral disk with radiculopathy. 3. Lumbosacral spondylosis with radiculopathy. 4. Lumbar degeneration. 5. Chronic intractable pain. PLAN: 1. The patient returns today in followup visit having noted side effects to the amitriptyline of increased heart rate as well as excessive sweating. We have weaned the patient off the amitriptyline, and the symptoms did improve. This is not unusual with norepinephrine reuptake inhibitors, such as amitriptyline. It is unfortunate as the patient did note benefit from a pain standpoint, reducing her pain over the time to 75% improvement, but unfortunately due to side effects, we had to discontinue the therapy. She returns to discuss options for treatment. We discussed with the patient the other remaining neuropathic medications that might be beneficial. These would include a transition from gabapentin to Lyrica in hopes of gaining greater analgesic benefit by adjusting the dosing of Lyrica. We also discussed the possible addition of Cymbalta, as this will give us some norepinephrine reuptake inhibition with less side effects than we see with the amitriptyline. The patient was agreeable to begin the duloxetine therapy. 2. The patient was provided a prescription to refill her gabapentin. I have given her a prescription of gabapentin 600 mg tablets to take two 3 times a day. She was given, #180, with 5 refills. This is 6 months' worth of medication. We recommend she continue the gabapentin given her improvement with analgesia and lack of side effects. 3. We will start the patient on duloxetine 30 mg dose 1 tab p.o. at bedtime for 7 nights. If no improvement in symptoms, no side effects of sleepiness, disorientation, confusion, mental slowing, then increase to 60 mg p.o. at bedtime. She will continue that therapy for another 7 days. Again, no improvement in symptoms, no side effects, then 1 tab in the morning up to 30 mg and 2 tablets at night for a total of 60 mg for 7 more nights. If no improvement in symptoms and no side effects, then increase to 60 mg b.i.d. The patient was given, #120, of the 30 mg tablets with refills if she finds it effective. She will contact our clinic with any questions or concerns in regards to medication. 4. We will see the patient back in followup visit on an as-needed basis for medication management. We are hopeful the adjustments made today will improve [facility] [address] [place] [address] PAIN MANAGEMENT CONSULTATION Name: NEELJENNIFER Room #: REG JACOB Vance#: [id number] Admission: 04/21/20 Attend Phys: Tremayne Hernandez DO Discharge: Date of : 66 Report #: [id number] overall analgesia. We will be available to see her back to make further adjustments to her discuss interventional treatments. By: [id number] Tremayne Hernandez DO /nt
[2020-04-21 09:22] VITALS: BP 154/89
--- NOTE | 2020-04-21 09:32 | NUR ---
Pain Clinic Assessment: 1. History of Osteoarthritis: Not Applicable History of Rheumatoid Arthritis: Not Applicable 2. Height: 5 ft. 8 in. 172.7 cm. Weight: 246.8 lb. oz. 111.948 kg. Patient's BMI: 37.5 3. Vital Signs: BP: 154/89 Pulse: 86 Resp: 16 Temp: 02 Sat: 98 ECG Mon: 4. Pain Intensity: 5 5. Fall Risk: Dizziness: N Needs help standing or walking: N Fallen in the last 3 months: N Fall risk comments: 6. Patient on Blood Thinner: None 7. History of Hypertension: N 8. Opioid Therapy greater than 6 weeks: N Opiate Contract Signed: 9. Risk Assessment Tool Provided: low-0 10. Functional Assessment Tool: 44/ 11. Recreational Drug Use: Never Drug Type: Tobacco Use: Never Smoker Tobacco Type: Amount or Packs/day: How Many Years: Alcohol Use: Yes Frequency: Quant:
== END ==
LOC: PAIN 06:48
PROVIDERS: ATTEND Anesthesiology Pain Medicine
DX: M47.27 Other spondylosis with radiculopathy, lumbosacral region (principal); M51.36 Other intervertebral disc degeneration, lumbar region; M79.605 Pain in left leg; R20.2 Paresthesia of skin; G89.29 Other chronic pain

== ENCOUNTER → 2020-12-22 | Outpatient (CLI) | payer OTHER ==
[~2020-12-22] VITALS: Ht 172.7 cm; Wt 113.6 kg
[~2020-12-22] MED LIST changes: +[UNRECOGNIZED DRUG - OTHER] PO
[2020-12-22 08:57] VITALS: BP 141/84
--- NOTE | 2020-12-22 09:16 | NUR ---
Pain Clinic Assessment: 1. History of Osteoarthritis: Not Applicable History of Rheumatoid Arthritis: Not Applicable 2. Height: 5 ft. 8 in. 172.7 cm. Weight: 250.4 lb. oz. 113.581 kg. Patient's BMI: 38.1 3. Vital Signs: BP: 141/84 Pulse: 76 Resp: 16 Temp: 02 Sat: 98 ECG Mon: 4. Pain Intensity: 2 5. Fall Risk: Dizziness: N Needs help standing or walking: N Fallen in the last 3 months: N Fall risk comments: 6. Patient on Blood Thinner: None 7. History of Hypertension: N 8. Opioid Therapy greater than 6 weeks: N Opiate Contract Signed: 9. Risk Assessment Tool Provided: low-0 10. Functional Assessment Tool: 44/ 11. Recreational Drug Use: Never Drug Type: Tobacco Use: Never Smoker Tobacco Type: Amount or Packs/day: How Many Years: Alcohol Use: Yes Frequency: Weekly Quant: 1-2 DRINKS PER WEEK
--- NOTE | 2020-12-23 09:00 | HPC ---
[facility] [address] [place] [address] PAIN MANAGEMENT CONSULTATION Name: JENNIFER SHAIKH Room #: REG [facility] M.R.#: [id number] Admission: 12/22/20 Attend Phys: Mesha Monroe Discharge: Date of : 66 Report #: [id number] THIS REPORT FOR: cc: MAMTA - No family physician/PCP FAM - No family physician/PCP Mesha Monroe ~ cc: Tremayne Hernandez DO DATE OF SERVICE: 12/22/2020 CHIEF COMPLAINT: Low back pain, left lower extremity pain and paresthesias. HISTORY OF PRESENT ILLNESS: This is a 50-year-old female who returns to the pain clinic today for renewal of her gabapentin. She continues to have ongoing low back pain and left leg pain. The patient does report occasionally numbness in her right leg, but most specifically in her left that radiates to her outer 3 toes of her foot. Her numbness, tingly burning sensation is worse with prolonged walking and standing. Today, she does rate her pain at a 2/10. She does state that distraction, rest and sitting as well as her gabapentin have been beneficial in reducing her overall discomfort. We last saw the patient in March. At that time, Dr. Tremayne Hernandez had ordered a trial of Cymbalta for her. The patient felt like this medication was not beneficial in helping aid any further numbness, tingly sensation that she experiences and did not continue that medication. She has also stopped her amitriptyline, which she believed increased her heart rate by at least 15 beats. She has been off that medication for quite some time and believes her heart rate is decreased and is regular. Today, she is only requesting refills of gabapentin. ALLERGIES: No known drug allergies. CURRENT LIST OF MEDICATIONS: Selenium, gabapentin 1200 mg q.8 hours, probiotic, vitamin B, flaxseed oil, multivitamin, biotin, vitamin D, ibuprofen p.r.n. :PQRS 1. She denies any osteo or rheumatoid arthritis. Height is 5 feet 8 inches, weight is 250, BMI is 38. 2. Vital signs: Blood pressure 141/84, pulse is 76, respirations 16, oxygen sat is 98%. 3. Pain score is 2/10. 4. Denies dizziness, does not need help walking or standing, has not fallen in the last 3 months. The patient is not on any blood thinners or medication for hypertension. 5. She denies any opioid therapy. She has a low risk assessment tool. Functional assessment is 44/70. 6. Recreational drug use, she denies. She is not a smoker and occasionally [address] [address] PAIN MANAGEMENT CONSULTATION Name: JENNIFER SHAIKH Room #: REG [facility] Pinky#: [id number] Admission: 12/22/20 Attend Phys: Mesha Monroe Discharge: Date of : 66 Report #: [id number] drinks alcohol. PHYSICAL EXAMINATION: GENERAL: This is a well-developed, well-nourished, slightly obese, well-hydrated 50-year-old female who appears her stated age, rating her pain score today at 2/10. HEENT: Normocephalic, atraumatic. Pupils equal, round and reactive to light. She is wearing a mask due to COVID-19 requirements. EXTREMITIES: No clubbing, no cyanosis. No appreciable edema. MUSCULOSKELETAL: Lower extremity strength is symmetrical. She has tenderness in the lumbosacral region of her spine that radiates into her left leg with significant numbness sensation down the lateral aspect of her left leg with decreased sensation in her left outer toes of her foot. Straight leg raising is negative. She has a normal gait. ASSESSMENT: 1. Symptomatic lumbar radiculopathy. 2. Displacement of lumbar intervertebral disk with radiculopathy. 3. Lumbosacral spondylosis with radiculopathy. 4. Lumbar degeneration. 5. Chronic intractable pain. PLAN: 1. We discussed treatment options with the patient today. The patient would like to continue her gabapentin and feels this medication has been beneficial in decreasing a significant portion of her pain, taking 2 tablets every 8 hours. We will continue her on this medications, sending 600 mg tablets, #180 with 5 refills to her pharmacy. 2. The patient did not feel like Cymbalta was beneficial in controlling her pain or noticing a decrease in the numbness sensation, so we will not retrial that medication. 3. The patient does not have a primary care physician. I did explain that [facility] has multiple doctors that she may see and if she does establish care with a primary care doctor that they can take over writing this medication for her. The patient verbalizes understanding. She reports that it is expensive for her to come to our clinic with her insurance. The patient will return in 6 months or as needed for pain management. Time spent with the patient in consultation, reviewing pertinent imaging, reviewing recent studies and clinical notes and physician reports, physical examination and correlation of physical findings and determine possible medical treatment options 12 minutes. Time spent preparing for appointment, reviewing prescription monitoring system, reviewing previous records and proposed treatment options, reviewing current [address] [address] PAIN MANAGEMENT CONSULTATION Name: JENNIFER SHAIKH Room #: REG JACOB HyattCollins#: [id number] Admission: 12/22/20 Attend Phys: Mesha Monroe Discharge: Date of : 66 Report #: [id number] medications 5 minutes. Time spent with preparing and sending electronic prescriptions with collaborating physician, Dr. Tremayne Hernandez, documentation of visit and plan of treatment 5 minutes. Total time spent 22 minutes. <ELECTRONICALLY SIGNED> By: Mesha Monroe 12/23/20 0900 [id number] Mesha Monroe /oscar
== END ==
LOC: PAIN 08:04
PROVIDERS: ATTEND Clinical Nurse Specialist Adult Health
DX: M51.16 Intervertebral disc disorders with radiculopathy, lumbar region (principal); M47.26 Other spondylosis with radiculopathy, lumbar region; M54.5 Low back pain; M79.605 Pain in left leg; Z79.899 Other long term (current) drug therapy